=== PATIENT | female | born 1955 | race Two or more races ===

== ENCOUNTER 2023-02-20 08:58 | Emergency (ER) | payer OTHER ==
[~2023-02-20] VITALS: Ht 170.2 cm; Wt 109.8 kg
[~2023-02-20 08:58] MED LIST: LEVOTHROID112 MCG PO; METFORMIN HCL850 MG PO; ZOCOR40 MG PO
[2023-02-20] MEDS ORDERED: GLIPIZIDE XL5 MG (09:05)
[2023-02-20] MEDS ORDERED: LINZESS72 MCG (09:07)
[2023-02-20] MEDS ORDERED: JARDIANCE25 MG (09:08)
[2023-02-20] MEDS ORDERED: LINZESS290 MCG (09:09)
== END 2023-02-20 11:49 | disposition home or self-care (01) ==
LOC: ER 08:58
DX: K64.9 Unspecified hemorrhoids (principal)